=== PATIENT | female | born 1995 | race Caucasian/White ===

== ENCOUNTER 2019-02-05 21:47 | Emergency (ER) | payer OTHER ==
[~2019-02-05] VITALS: Ht 157.5 cm; Wt 97.5 kg
== END 2019-02-06 00:45 | disposition home or self-care (01) ==
LOC: FSED 21:47
DX: N75.1 Abscess of Bartholin's gland (principal); F90.9 Attention-deficit hyperactivity disorder, unspecified type; F17.210 Nicotine dependence, cigarettes, uncomplicated
CPT/HCPCS: 99283

== ENCOUNTER 2019-02-22 23:52 | Emergency (ER) | payer OTHER ==
[~2019-02-22] VITALS: Ht 157.5 cm; Wt 98.4 kg
--- OUTSIDE RECORDS SUMMARY | 2019-02-22 23:54 | XMS REPORT | Encounter Summary ---
Author Organization Unknown Address [address] [place] [address] Phone [phone] Care Team Providers Care Marketing Program Manager Name Role Phone Dr. Carole Niño 3 [phone] Reason for Visit ADD/ADHD Instructions 1. Attention deficit hyperactivity disorder, predominantly inattentive type Adderall 20 mg tablet 2. Anxiety 3. Persistent insomnia 4. Goiter 5. Cigarette smoker Discussion Note: None recorded. Patient educational handouts: No information available. Plan of Care Reminders Provider Appointments None recorded. Lab None recorded. Referral None recorded. Procedures None recorded. Surgeries None recorded. Imaging None recorded. Medications Name Start Date Adderall 20 mg tablet Take 1 tablet every day by oral route in the morning. Medications Administered None recorded. Vitals Height Weight BMI Blood Pressure 5 ft 2.5 in 218 lbs 39.2 kg/m2 120/80 mm[Hg] Lab Results None recorded. Allergies Code Code System Name Reaction Severity Status Onset Cat Dander Itching Moderate to Severe Active NKDA Problems Name Status Onset Date Source Goiter Active 02/15/2019 Anxiety Active 02/15/2019 Persistent Insomnia Active 02/15/2019 Attention Deficit Hyperactivity Disorder, Predominantly Inattentive Type Active 02/15/2019 Cigarette Smoker Active 02/16/2019 Procedures Date Name Performed by Neck/chest Surgery Procedure Information not available Vaccine List Vaccine Type MMR 12/28/20170.5 mL Tdap 12/28/20170.5 mL varicella 12/28/20170.5 mL Social History Tobacco Smoking Status Light Tobacco Smoker (1 PPW) Past Encounters 02/15/2019 Attention Deficit Hyperactivity Disorder, Predominantly Inattentive Type; Anxiety; Persistent Insomnia; Goiter; Cigarette Smoker Carole Niño MD: [id number], [address], [place] [address], Ph. History of Present Illness Note:Pt states she was on adderall and buspar ages 12 to 18 due to academic and behaviour issues. Her grades shot up after she was put on her meds. Her mother abused drugs before her so pt stopped meds. <div>She later Moved to [place], and has moved back to [place]. Has had 4 jobs this yr because she quit due to not being able to get up and go to her jobs, often forgetful.<div>Has trouble staying asleep. denies depression. </div><div>feels she is lazy, does not want to do chores. </div></div> Review of Systems:ROS as noted in the HPI Review of Systems None recorded. Physical Exam Notes: General Appearance: Well appearing, well developed, well nourished, well hydrated, obese good color, and in no acute distress

<div>Head: Normocephalic atraumatic

</div><div>Eyes: Pupils equal/round/reactive to light, no scleral icterus, extraocular movements intact, no erythema, no discharge, normal RR, alignment within normal limits

</div><div>Ears: Normal hearing
</div><div>
</div><div>Nose: Nares patent and no discharge

</div><div>Mouth: Moist mucous membranes, tongue normal, gingiva normal, palate normal, tonsils normal

</div><div>Neck: Supple, FROM, + possible thyromegaly but also large fat pad, no masses

</div><div>Chest Wall: No retractions

</div><div>Lungs: CTA bilaterally, no wheezes/rales/rhonchi, and good air entry

&l t;/div><div>Heart: Regular rate and regular rhythm, no murmur

</div><div>Musculoskeletal: No obvious deformity. Moves all 4 extremities, stable gait.

</div><div>Extremities: Symmetric, no obvious defect, and no cyanosis/clubbing/edema.

</div><div>Neurologic: Alert/appropriate, normal strength, normal tone. Clear speech, aao x 3.

</div><div>Skin: No jaundice.

</div><div>Psych: Mood congruent affect, responds appropriately to questions.</div>
[2019-02-23] MEDS ORDERED: NAPROSYN500 MG PO (00:38)
[2019-02-23] MEDS ORDERED: BACTRIM DS TAB1 EACH PO (00:38)
== END 2019-02-23 01:10 | disposition home or self-care (01) ==
LOC: FSED 23:52
DX: N76.4 Abscess of vulva (principal); N75.0 Cyst of Bartholin's gland
CPT/HCPCS: 81003; 81025; 87071; 87205; 99283

== ENCOUNTER 2020-10-08 19:39 | Emergency (ER) | payer OTHER ==
[~2020-10-08] VITALS: Ht 157.5 cm; Wt 87.1 kg
[~2020-10-08 19:39] MED LIST: BACTRIM DS TAB1 EACH PO; NAPROSYN500 MG PO
[2020-10-08] MEDS ORDERED: CEFTRIAXONE SOD 1 GM/50 ML BAG IV ONE (20:30)
[2020-10-08 20:45] VITALS: BP 136/65
[2020-10-08] MEDS ORDERED: CEFTRIAXONE SOD 1 GM in DEXTROSE 5% 50ML 50 ML IV ONE (20:45)
== END 2020-10-08 20:45 | disposition home or self-care (01) ==
LOC: FSED 20:29
DX: N75.1 Abscess of Bartholin's gland (principal); F17.210 Nicotine dependence, cigarettes, uncomplicated
CPT/HCPCS: 99282; J0696